=== PATIENT | female | born 1970 | race Caucasian/White ===

== ENCOUNTER 2016-07-20 16:52 | Emergency (ER) | payer SELFPAY ==
--- NOTE | 2016-07-20 18:02 | ER Document Report ---
ED Medical Screen (RME) - General Stated Complaint: LOW BACK PAIN,ABDOMINAL PAIN Notes: 45 yo female c/o low back pain radiating to right lower abdomen x several days. + urinary hesitancy, nausea. no fever. - Related Data Allergies/Adverse Reactions: No Known Allergies Allergy (Unverified 07/20/16 17:59) Past Medical History Past Surgical History: Reports: Hx Appendectomy - Immunizations Immunizations up to date: Yes Hx Diphtheria, Pertussis, Tetanus Vaccination: Yes Physical Exam - Vital signs Vitals: Temp Pulse Resp BP Pulse Ox 97.7 F 89 18 144/90 H 97 07/20/16 17:34 07/20/16 17:34 07/20/16 17:34 07/20/16 17:34 07/20/16 17:34 Course - Vital Signs Vital signs: Temp Pulse Resp BP Pulse Ox 97.7 F 89 18 144/90 H 97 07/20/16 17:34 07/20/16 17:34 07/20/16 17:34 07/20/16 17:34 07/20/16 17:34
[2016-07-20 18:28] LABS: ABSOLUTE LYMPHOCYTES (AUTO) 1.5 10^3/uL (0.5-4.7); ABSOLUTE MONOCYTES (AUTO) 0.5 10^3/uL (0.1-1.4); ABSOLUTE NEUT (AUTO) 10.5 10^3/uL (1.7-8.2); BASOPHILS % (AUTO) 0.2 % (0-2); EOSINOPHILS % (AUTO) 0.1 % (0-6); HEMATOCRIT 40.9 % (36.0-47.0); HEMOGLOBIN 13.8 g/dL (12.0-15.5); HGB HCT DIFFERENCE 0.5; LYMPHOCYTES % (AUTO) 11.8 % (13-45); MEAN CORPUSCULAR HEMOGLOBIN 29.8 pg (27.0-33.4); MEAN CORPUSCULAR HGB CONC 33.8 g/dL (32.0-36.0); MEAN CORPUSCULAR VOLUME 88 fl (80-97); MONOCYTES % (AUTO) 4.3 % (3-13); RED BLOOD COUNT 4.65 10^6/uL (3.72-5.28); RED CELL DISTRIBUTION WIDTH 13.2 % (11.5-14.0); SEGMENTED NEUTROPHILS % (AUTO) 83.6 % (42-78); WHITE BLOOD COUNT 12.6 10^3/uL (4.0-10.5)
[2016-07-20 18:35] LABS: APPEARANCE,URINE SLIGHTLY-CLOUDY; BILIRUBIN,URINE NEGATIVE (NEGATIVE); GLUCOSE, URINE NEGATIVE (NEGATIVE); KETONES,URINE NEGATIVE (NEGATIVE); LEUKOCYTE ESTERASE,URINE NEGATIVE (NEGATIVE); NITRITE,URINE NEGATIVE (NEGATIVE); PROTEIN,URINE NEGATIVE (NEGATIVE); URINE SPECIFIC GRAVITY 1.021; UROBILINOGEN,URINE NEGATIVE mg/dL (<2.0)
[2016-07-20 18:48] LABS: ALANINE AMINOTRANSFERASE 32 U/L (9-52); ALBUMIN 4.2 g/dL (3.5-5.0); ALKALINE PHOSPHATASE 56 U/L (38-126); ANION GAP 11 (5-19); ASPARTATE AMINO TRANSFERASE 31 U/L (14-36); BILIRUBIN,TOTAL 0.8 mg/dL (0.2-1.3); BLOOD UREA NITROGEN 17 mg/dL (7-20); CALCIUM 9.6 mg/dL (8.4-10.2); CARBON DIOXIDE 25 mmol/L (22-30); CHLORIDE 104 mmol/L (98-107); CREATININE RESULT 0.77 mg/dL (0.52-1.25); GLUCOSE 97 mg/dL (75-110); LIPASE 59.9 U/L (23-300); POTASSIUM 4.7 mmol/L (3.6-5.0); TOTAL PROTEIN 7.5 g/dL (6.3-8.2)
[2016-07-20] MEDS ORDERED: HYDROCODONE/ACETAMINOPHEN 5-325 MG 6 TAB/DSPK PO PRN (23:17)
--- NOTE | 2016-07-20 23:22 | ER Document Report ---
ED General - General Chief Complaint: Flank Pain Stated Complaint: LOW BACK PAIN,ABDOMINAL PAIN Notes: Patient is 45-year-old female presents with complaint of pain in her right lower back. She says pain is starting to radiate around her flanks. She says it's a burning type sensation and goes around her flanks. No abnormal vaginal discharge or bleeding. She does have a previous history of Jenniffer but says this feels different. She says most the pain is in her back and is much worse with movement. She denies any acute injury. She denies any history of illegal drug abuse. Says pain has been worsening for a week now. Loss of bowel control. She says she has a little bit of discomfort when she urinates but is able to urinate. No leg weakness or numbness. TRAVEL OUTSIDE OF THE [place] IN LAST 30 DAYS: No - Related Data Allergies/Adverse Reactions: No Known Allergies Allergy (Unverified 07/20/16 17:59) Past Medical History - Social History Smoking Status: Never Smoker Chew tobacco use (# tins/day): No Frequency of alcohol use: None Drug Abuse: None Family History: Reviewed & Not Pertinent Patient has suicidal ideation: No Patient has homicidal ideation: No Renal/ Medical History: Denies: Hx Peritoneal Dialysis Past Surgical History: Reports: Hx Appendectomy - Immunizations Immunizations up to date: Yes Hx Diphtheria, Pertussis, Tetanus Vaccination: Yes Review of Systems - Review of Systems Notes: My Normal Review Basic REVIEW OF SYSTEMS: CONSTITUTIONAL : Denies fever, chills, or sweats. Denies recent illness. CARDIOVASCULAR: Denies chest pain. RESPIRATORY: Denies cough, cold, or chest congestion. Denies shortness of breath, difficulty breathing, or wheezing. GASTROINTESTINAL: Lower abdominal pain Denies nausea, vomiting, or diarrhea. Denies constipation. Last BM: GENITOURINARY: Mild dysuria FEMALE GENITOURINARY: Denies vaginal bleeding, abnormal or irregular periods. LMP: MUSCULOSKELETAL: No back pain SKIN: Denies rash or skin lesions.. NEUROLOGICAL: Denies altered mental status or loss of consciousness. Denies headache. Denies weakness or paralysis or loss of use of either side. Denies problems with gait or speech. Denies sensory or motor loss. ALL OTHER SYSTEMS REVIEWED AND NEGATIVE. Physical Exam - Vital signs Vitals: Temp Pulse Resp BP Pulse Ox 97.7 F 89 18 144/90 H 97 07/20/16 17:34 07/20/16 17:34 07/20/16 17:34 07/20/16 17:34 07/20/16 17:34 - Notes Notes: General Appearance: Well nourished, alert, cooperative, no acute distress, moderate obvious discomfort. Vitals: reviewed, See vital signs table. Head: no swelling or tenderness to the head Eyes: PERRL, EOMI, Conjuctiva clear Mouth: No decreasd moisture Lungs: No wheezing, No rales, No rhonci, No accessory muscle use, good air exchange bilaterally. Heart: Normal rate, Regular rythm, No murmur, no rub Abdomen: Normal BS, soft, No rigidity, No abdominal tenderness, No guarding, no rebound, no abdominal masses, no organomegaly Extremities: strength 5/5 in all extremities, good pulses in all extremities, no swelling or tenderness in the extremities, no edema. Skin: warm, dry, appropriate color, no rash Neuro: speech clear, oriented x 3, normal affect, responds appropriately to questions. Patient is good strength with plantar and dorsiflexion. She's able stand and walk without difficulty. Good distal sensation in her extremities. Course - Vital Signs Vital signs: Temp Pulse Resp BP Pulse Ox 98.5 F 70 16 119/75 99 07/21/16 00:27 07/21/16 00:27 07/21/16 00:27 07/21/16 00:27 07/21/16 00:27 - Laboratory Result Diagrams: 07/20/16 18:10 07/20/16 18:10 Laboratory results interpreted by me: 07/20/16 07/20/16 18:10 18:15 WBC 12.6 H Seg Neutrophils % 83.6 H Lymphocytes % 11.8 L Absolute Neutrophils 10.5 H Urine Blood SMALL H - Transfer of Care Notes: 07/21/16 07:33 Patient's low back was very tender to palpation. Most the pain was on the right paraspinal musculature. There is no central pain over the spine itself. She does have a burning type sensation and radiates around her flanks or abdomen. Suspect this could be opened of a pinched nerve. She has no reproducible anterior abdominal tenderness to palpation. Do not suspect an intra-abdominal pathology based on her exam. She has no evidence of central cord compression in that she's had no loss of bowel control, she has been urinating, she said no fevers, she has no leg weakness or numbness, she is able stand walk. Patient is a primary care doctor that she follow closely with him for reevaluation and possible MRI if her symptoms continue. I encourage her to return to ER if she does have leg weakness or numbness, loss of bowel control, or inability to urinate. Patient agrees with plan and will be discharged home. I did also talk to her about her history of ovarian cyst. The did offer to do an ultrasound here however patient says that she prefers to wait follow-up with her doctor because of the fact that her insurance will kick until August 17. Her symptoms are not consistent with ovarian torsion and therefore I do not feel that the ultrasound is emergent at this time and can wait for her outpatient follow-up. Dictation of this chart was performed using voice recognition software; therefore, there may be some unintended grammatical errors. Discharge - Discharge Clinical Impression: Back pain Qualifiers: Back pain location: low back pain Chronicity: acute Back pain laterality: bilateral Sciatica presence: without sciatica Qualified Code(s): M54.5 - Low back pain Condition: Good Disposition: HOME, SELF-CARE Additional Instructions: LOW BACK PAIN: Three out of every four people will have an episode of disabling back pain during their lifetime. Most commonly the pain is due to straining of the muscles and ligaments in the low back. Usual treatment includes: (1) Rest on a firm surface. Avoid lying on your stomach. (2) Ice pack the painful area. After a few days, gentle heat may be used intermittently to relax the area, or ice packs can be continued. (3) Medication may be needed -- muscle relaxers and antiinflammatory medicines are commonly used. (4) As the back improves, exercises are prescribed to strengthen the back and abdominal muscles. Your doctor will advise you on the proper care for your back at each stage in your recovery. You may be better in a few days -- or healing may take several weeks. If new symptoms of a "herniated disc" (radiation of pain, numbness, or tingling down the back of the leg or weakness in the leg) occur, you should be re-examined. Further testing may be necessary. ORAL NARCOTIC MEDICATION: You have been given a prescription for pain control. This medication is a narcotic. It's best taken with food, as nausea can result if taken on an empty stomach. Don't operate machinery or drive within six hours of taking this medication. Do not combine this medicine with alcohol, or with any medication which can cause sedation (such as cold tablets or sleeping pills) unless you get permission from the physician. Narcotics tend to cause constipation. If possible, drink plenty of fluids and eat a diet high in fiber and fruits. Please be aware that prescription narcotics also have the potential for abuse. People become addicted to these medications because of the general sense of wellbeing that they induce. This feeling along with a significant reduction in tension, anxiety, and aggression provides a stimulating seductive quality to these drugs. Once your pain is under control, we encourage you to discard your unused narcotics. ICE PACKS: Apply ice packs frequently against the painful area. Many different schedules are recommended, such as "20 minutes on, 20 minutes off" or "one hour ice, two hours rest." If you need to work, you may need to go longer between ice treatments. You should plan to have the area ice packed AT LEAST one fourth of the time. The ice should be applied over the wrap, tape, or splint, or over a layer of cloth -- not directly against the skin. Some ice bags have a built-in cloth and can be put directly on the skin. WARM PACKS: After approximately two days, apply gentle heat (such as a heating pad or hot water bottle) for about 20 to 30 minutes about every two hours -- at least four times daily. Warmth and elevation will help you make a more rapid recovery , and will ease the pain considerably. Do not use HOT heat, and never apply heat for longer than 30 minutes. The continuous heat can invisibly damage skin and muscles -- even when no burn is seen on the surface. Damaged muscles can make you MORE sore. FOLLOW-UP CARE: If you have been referred to a physician for follow-up care, call the physician s office for an appointment as you were instructed or within the next two days. If you experience worsening or a significant change in your symptoms, notify the physician immediately or return to the Emergency Department at any time for re-evaluation. PLease return to the ER immediately if you develop worsening pain, leg weakness , leg numbness, fevers, loss of control of your bowels, or inability to urinate. Please follow up closely with your doctor for reevaluation and for arrangement of outpatient MRI of your back. Please return tot ER if you have more abdominal pain or fevers. Prescriptions: Tramadol HCl [Ultram 50 mg Tablet] 50 mg PO Q4HP PRN #25 tab PRN Reason: Referrals: CHEVY LOVING MD [Primary Care Provider] - 07/22/16
[2016-07-21 00:30] VITALS: BP 119/75
== END 2016-07-21 00:30 | disposition home or self-care (01) ==
LOC: ER 16:52
DX: M54.5 Low back pain (principal)
CPT/HCPCS: 36415; 80053; 81001; 83690; 84703; 85025; 99284